=== PATIENT | male | born 1985 | race Caucasian/White ===

== ENCOUNTER → 2022-01-09 | Outpatient (CLI) | payer OTHER | LOC: M PLAIMG 01-01 10:52 | PROVIDERS: ATTEND Family Medicine | DX: M54.2 Cervicalgia (principal) ==

== ENCOUNTER 2022-04-03 10:58 | Day surgery (SDC) | payer OTHER ==
[~2022-04-03] VITALS: Ht 172.7 cm; Wt 113.8 kg
[~2022-04-03 10:58] MED LIST: AMIT150T PO; B-12100010 PO; BUPR150T12 PO; BUSP15TA47 PO; CYCL-707 PO; DICY20TA20 PO; DIPH-435; FAMO40TA3 PO; FISH500C PO; LISI10TA22 PO; MELO15TA28 PO; MUCI600T31; MULTTAB61 PO; OMEP40CA5 PO; SILD50TA2 PO; SUMA5SPR3; VITA100093 PO; ceFAZolin SOD 2 GM in IV 1 EA IV ONE
[2022-04-03] MEDS ORDERED: MIDAZOLAM INJ 2MG/2ML VIAL As Ordered ONE (11:24)
[2022-04-03] MEDS ORDERED: propofoL 200 MG/20 ML VIAL As Ordered ONE (11:24)
[2022-04-03] MEDS ORDERED: ONDANSETRON 4MG 2ML VIAL As Ordered ONE (11:24)
[2022-04-03] MEDS ORDERED: LIDOCAINE 2% 100MG/5ML SDV (FOR ANES.) As Ordered ONE (11:24)
[2022-04-03] MEDS ORDERED: fentaNYL 100 MCG/2 ML INJECTION As Ordered ONE (11:25)
[2022-04-03] MEDS ORDERED: LR 1,000 ML IV SCH ×2 (11:25→12:35)
[2022-04-03] MEDS ORDERED: BUPIVACAINE HCL 0.25% 30ML VIAL As Ordered ONE (11:30)
[2022-04-03] MEDS ORDERED: LIDOCAINE 1% SDV 30ML VIAL As Ordered ONE (11:30)
[2022-04-03] MEDS ORDERED: KETOROLAC 60MG 2ML VIAL As Ordered ONE (12:20)
[2022-04-03] MEDS ORDERED: ONDANSETRON 4MG 2ML VIAL IV PRN (12:35)
[2022-04-03] MEDS ORDERED: oxyCODONE 5MG TAB PO PRN (12:35)
[2022-04-03] MEDS ORDERED: MORPHINE 2 MG/ML 1ML VIAL IV PRN (12:35)
[2022-04-03] MEDS ORDERED: fentaNYL 100 MCG/2 ML INJECTION IV PRN (12:35)
[2022-04-03 13:50] VITALS: BP 138/70
== END 2022-04-03 14:07 | disposition home or self-care (01) ==
LOC: M SDC 10:58
PROVIDERS: ATTEND Urology
DX: N99.89 Other postprocedural complications and disorders of genitourinary system (principal); I10 Essential (primary) hypertension; E78.00 Pure hypercholesterolemia, unspecified; K58.0 Irritable bowel syndrome with diarrhea; K21.9 Gastro-esophageal reflux disease without esophagitis; M79.7 Fibromyalgia; F41.9 Anxiety disorder, unspecified; F32.A Depression, unspecified; G43.909 Migraine, unspecified, not intractable, without status migrainosus; M54.9 Dorsalgia, unspecified; G47.30 Sleep apnea, unspecified; Z79.899 Other long term (current) drug therapy
CPT/HCPCS: 55250; 88302; J0690; J1100; J1885; J2250; J2405; J3010; S0020

== ENCOUNTER → 2022-06-11 | Outpatient (REF) | payer OTHER ==
[~2022-06-11] MED LIST changes: -ceFAZolin SOD 2 GM in IV 1 EA IV ONE
[2022-06-11 14:01] LABS: SEMEN APPEARANCE OPAQUE (OPAQUE); SEMEN VISCOSITY LIQUID (LIQUID); SEMEN VOLUME 2.1 ml (2.0-5.0); WBC CONCENTRATION <=1 M/ml (<=1 M/ml)
== END ==
LOC: M SMT 13:24
PROVIDERS: ATTEND Physician Assistant
DX: Z98.52 Vasectomy status (principal)

== ENCOUNTER → 2022-06-23 | Outpatient (REF) | LOC: M PLAIMG 12:22 | PROVIDERS: ATTEND Internal Medicine | DX: Z11.52 Encounter for screening for COVID-19 (principal) ==

== ENCOUNTER → 2022-07-01 | Outpatient (REF) | payer OTHER ==
[2022-07-01 12:18] LABS: SEMEN APPEARANCE OPAQUE (OPAQUE); SEMEN VISCOSITY LIQUID (LIQUID); SEMEN VOLUME 2.2 ml (2.0-5.0); SEMEN pH 8.5 (7.0-8.0); WBC CONCENTRATION <=1 M/ml (<=1 M/ml)
== END ==
LOC: M SMT 12:15
PROVIDERS: ATTEND Physician Assistant
DX: Z98.52 Vasectomy status (principal)